=== PATIENT | male | born 1945 | race Caucasian/White ===

== ENCOUNTER 2024-07-20 20:02 | Inpatient (IN) | payer OTHER, MEDICARE, BC ==
[~2024-07-20] VITALS: Ht 172.7 cm; Wt 67.2 kg
[2024-07-20] MEDS ORDERED: iohexol 350MG/ML 100ml bottle IV ONE (20:14)
--- NOTE | 2024-07-20 20:22 | Physician Documentation ---
History of Present Illness ~ Stated Complaint: STROKE SYMPTOMS Time Seen by MD: 20:16 OK to notify your PCP?: Yes Source: patient, family (friends), RN/, RN notes reviewed, old records (none) Mode of Arrival: POV, Dropped Off Exam Limitations: no limitations, other (altered mental status) HPI 78 year old male, who is an [employer] with no known medical history, brought to the ED by his friends due to concerns of altered mental status, difficulty ambulating, and multiple falls today. Patient's friends have not seen him for approximately one week, and at that time he was not as talkative as normal and was leaning heavily on a truck to support himself. Today patient did not show up to their weekly dinner, so they called him but he did not answer the phone. They decided to go to his house at 1730 today, where they could see his legs w hile he lied in bed. When they knocked his legs "flopped over the bed" and they assumed patient was standing up to get the door, however after a few minutes he did not arrive so they entered the house. Patient was found lying on the floor in his room, having just fallen. Patient reported to his friends that he has had difficulty walking recently and has fallen approximately 12 times today, at one point hitting his head on the toilet. Friends report that patient normally walks approximately 20-30 yards while holding onto nearby objects to stabilize himself. He also appears to have some left arm weakness today and is looking to the right. He is also not as talkative as normal. Per friends, [facility] with [facility]. They are unaware of any medical diagnosis he has and patient traditionally does not go to "Western" doctors and takes multiple vitamins/herbal supplements. Medication Reconciliation Allergies: Coded Allergies: No Known Allergies (Unverified , 07/20/24) Past Medical History Past Medical History: No Pertinent History Past Surgical History: no surgical history Smoking Status: Never smoker Alcohol Use: Rarely Drug Use: marijuana Lives with: Alone Lives In: Home Review of Systems All Other Systems at this time: Reviewed and Negative ROS As stated above in the HPI, otherwise all systems are reviewed and negative. Physical Exam Vital Signs: RN Vital Signs have been reviewed: Yes Pulse Oximetry Reflects: adequate oxygenation General Appearance General: The patient is well developed, well nourished, nontoxic appearing and is in no acute distress. Skin: [place], warm and dry with no rashes. HEENT: Head was normocephalic and atraumatic. Chest: Clear to auscultation bilaterally without wheezes, rales or rhonchi. No accessory muscle use. No dullness to percussion. Heart: Rate regular and rhythmic. S1, S2. No murmurs. Palpation of the chest wall was normal. No rubs or thrills. Abdomen: Soft, nontender and nondistended. Positive bowel sounds. No guarding or rebound. Extremities: See below. No cyanosis, clubbing or edema. Pulses were equal and symmetric. Neurologic: A & O x4. Left pronator drift. No sensation of left upper and lower extremities. Left visual field neglect. No facial speech. Normal speech. Psychologic: Normal mood and affect. No agitation. Progress Progress Note 2044: Case discussed with teleneurologist, who will evaluate the patient shortly. 2144: beginning transfer process to facility with Neurointerventionalist. 2150: Case discussed with [facility] Neurointerventionalist. Reports patient does not need admission at their facility. Recommends giving aspirin but not Plavix. Admit here and repeat CTA in 3 months. 2199: Case discussed with Dr. Flanagan, internal medicine resident, who agrees to evaluate the patient for admission. Results/Orders Reviewed/noted all lab results: Yes Results/Orders Medications Received in ER Medications (Trade) Dose Ordered Sig/Chasity Route PRN Reason Start Time Stop Time Status Last Admin Dose Admin (aspirin 325mg tablet) 1 tab ONCE ONCE PO 07/20/24 22:15 07/20/24 22:24 DC 07/20/24 22:33 1 TAB Vital Signs 07/20/24 07/20/24 07/20/24 07/20/24 20:08 20:33 21:03 21:06 Pulse 94 91 87 95 Resp 15 15 19 17 B/P (MAP) 179/107 165/112 202/110 (140) Pulse Ox 98 97 98 97 O2 Flow Rate 0 07/20/24 07/20/24 21:06 21:37 Pulse 88 Resp 19 15 B/P (MAP) 179/120 (139) Pulse Ox 96 O2 Flow Rate 0 Laboratory Tests Test 07/20/24 20:10 07/20/24 20:32 White Blood Count 13.4 H Red Blood Count 5.38 Hemoglobin 15.9 Hematocrit 47.0 Mean Corpuscular Volume 87.4 Mean Corpuscular Hemoglobin 29.6 Mean Corpuscular Hemoglobin Concent 33.9 Red Cell Distribution Width 14.5 Platelet Count 232 Mean Platelet Volume 9.4 Neutrophils (%) (Auto) 69.6 Lymphocytes (%) (Auto) 16.5 L Monocytes (%) (Auto) 13.4 H Eosinophils (%) (Auto) 0.2 Basophils (%) (Auto) 0.3 Neutrophils # (Auto) 9.3 H Lymphocytes # (Auto) 2.2 Monocytes # (Auto) 1.8 H Eosinophils # (Auto) 0.0 Basophils # (Auto) 0.0 CBC Comment Erythrocyte Sedimentation Rate 12 Prothrombin Time 10.4 INR International Normalized Ratio 1.0 Activated Partial Thromboplast Time 27 Coagulation Comments Sodium Level 136 Potassium Level 4.3 Chloride Level 101 Carbon Dioxide Level 27.4 Anion Gap 8 Blood Urea Nitrogen 15 Creatinine 1.21 H Estimated GFR/1.73 m2 58 BUN/Creatinine Ratio 12.4 Glucose Level 122 H Calcium Level 9.3 Magnesium Level 2.0 Troponin I High Sensitivity 43 C-Reactive Protein 9.04 H Pro-B-Type Natriuretic Peptide 1277 H Albumin 3.7 Chemistry Comments Glucometer 130 H EKG/XRAY/CT/US/VASC/MRI CT #1: Interpreted By: radiologist CT: head With Contrast?: No Impression Clinical History stroke left sided Comparison None Technique: All CT scans at this medical facility are performed using dose modulation techniques as appropriate to a performed exam including the following: Automated exposure control was utilized; adjustment of the mA and/or kV according to patient size; and use of iterative reconstruction technique. All CT studies are reported to the Dose Index Registry of the [employer]. Without Contrast Radiation Dose: CTDI (mGy): 61.74; DLP (mGy-cm): 1071.98 ELI LÓPEZ, [id number] FINDINGS: The visualized portion of the orbits, scalp, and calvarium are unremarkable. No extraaxial fluid collection is noted. No acute infarct, hemorrhage, mass, or fluid collection is noted. Bilateral basal ganglia lacunar infarct is seen, chronic on the left and likely subacute on the right. Generalized atrophy is seen. There is periventricular white matter hypodensity compatible with small vessel ischemic changes. No hydrocephalus or midline shift is identified. The visualized portions of the paranasal sinuses and mastoid air cells are clear. IMPRESSION: Bilateral basal ganglia lacunar infarct is seen, chronic on the left and likely subacute on the right. MRI may be helpful for further evaluation. Atrophy with small vessel ischemic changes. Otherwise no acute intracranial finding This report was electronically signed by Victor Hugo Steanrs MD on 07/20/2024 8:39:12 PM. Reviewed by me CT #2: Interpreted By: radiologist CT: head (/neck) With Contrast?: Yes Impression INDICATION: normal ct head with CVA COMPARISON: None TECHNIQUE: CTA head without and with intravenous contrast. CTA neck with intravenous contrast. 3D image postprocessing was performed on a dedicated workstation and images were used for interpretation and reporting. Radiation Dose Information: CT Dose: CTDI volume is mGy. Dose-length product is mGy*cm FINDINGS: Common carotids are unremarkable. Patient has a dominant right vertebral artery. There are minimal soft plaque and calcified plaque in the carotid bulbs internal carotids and intracranial carotids demonstrate minimal patchy calcifications. The middle cerebral arteries, anterior cerebral arteries posterior cerebral arteries and basilar artery unremarkable. Patient has a dominant right vertebral artery. Area of most stenosis is the left bulb with There is Possible 30% stenosis. No evidence for aneurysm or extravasation of contrast or arterial venous malformation. IMPRESSION: 1. No significant stenoses or abnormalities All CT scans at this medical facility are performed using dose modulation techniques as appropriate to a performed exam including the following: Automated exposure control was utilized; adjustment of the MA and/or KV according to patient size; and use of iterative reconstruction technique. Reviewed by me Departure Time of Disposition: 22:00 Disposition: 09 ADMITTED INPATIENT Admitted to Inpatient Unit: yes, to hospitalist Impression: Primary Impression: Stroke Qualified Codes: I63.9 - Cerebral infarction, unspecified Condition: Guarded Referrals: NO PRIMARY CARE PROVIDER (PCP) Critical Care Note Total Time (mins): 35 Critical Care Note Critical Care Time: 35 minutes Treatments/Evaluations: Close monitoring and treatment of unstable vital signs, cardiorespiratory, and neurologic status, while maintaining tight balance of fluid, respiratory, and cardiac interventions. This time includes discussing the case with the patient and the patient's family. This time does not include all procedures stated elsewhere in this record. This time also includes reviewing old records, labs and radiological studies. This time includes examining and re- examining the patient. Additionally, this time also includes arranging care with admitting and consulting physicians. Signature Scribe Signature: Scribed for Dennis Limon MD by Gerard Milian . 07/20/24 20:23 Attestation: The note accurately reflects work and decisions made by me.Dennis Limon MD 20:22 DENNIS LIMON MD Jul 20, 2024 20:22 GERARD CARTWRIGHT Jul 20, 2024 20:34
[2024-07-20 20:32] LABS: APTT 27 SECONDS (22-32); BASOPHILS % (AUTO) 0.3 % (0-1); EOSINOPHILS % (AUTO) 0.2 % (0-6); HEMOGLOBIN 15.9 g/dl (14.0-17.9); LYMPHOCYTES # (AUTO) 2.2 X10'3 (1.1-4.8); LYMPHOCYTES % (AUTO) 16.5 % (21-51); MEAN CORPUSCULAR HEMOGLOBIN 29.6 PG (27.0-31.0); MEAN CORPUSCULAR HGB CONC 33.9 g/dL (33.0-36.5); MEAN CORPUSCULAR VOLUME 87.4 FL (78-98); MEAN PLATELET VOLUME 9.4 FL (7.4-10.4); MONOCYTES # (AUTO) 1.8 X10'3 (0-0.9); MONOCYTES % (AUTO) 13.4 % (2-12); NEUTROPHILS # (AUTO) 9.3 X10'3 (1.8-7.7); NEUTROPHILS % (AUTO) 69.6 % (42-75); PLATELET COUNT 232 X10'3 (140-440); PROTHROMBIN TIME 10.4 SECONDS (9.0-12.0); RED BLOOD COUNT 5.38 X10'6 (4.70-6.10); RED CELL DISTRIBUTION WIDTH 14.5 % (11.5-14.5); WHITE BLOOD COUNT 13.4 X10'3 (4.5-11.0)
[2024-07-20 20:40] LABS: ALBUMIN 3.7 G/DL (3.4-5.0); ANION GAP 8 (8-16); BLOOD UREA NITROGEN 15 MG/DL (7-18); BUN/CREATININE RATIO 12.4 (10.0-20.0); C-REACTIVE PROTEIN 9.04 MG/DL (0.0-0.5); CALCIUM 9.3 MG/DL (8.5-10.1); CHLORIDE 101 MMOL/L (99-107); CREATININE 1.21 MG/DL (0.60-1.10); GLUCOSE 122 MG/DL (70-104); POTASSIUM 4.3 MMOL/L (3.5-5.1); PRO BRAIN NATRIURETIC PEPTIDE 1277 PG/ML (0-450); SODIUM 136 MMOL/L (135-145); TOTAL CARBON DIOXIDE 27.4 MMOL/L (24-32); eGFR 58 ML/MIN
--- NOTE | 2024-07-20 20:42 | RADIOLOGY REPORT ---
Clinical History stroke left sided Comparison None Technique: All CT scans at this medical facility are performed using dose modulation techniques as appropriate t o a performed exam including the following: Automated exposure control was utilized; adjustment of th e mA and/or kV according to patient size; and use of iterative reconstruction technique. All CT studies are reported to the Dose Index Registry of the [employer]. Without Contrast Radiation Dose: CTDI (mGy): 61.74; DLP (mGy-cm): 1071.98 ELI LÓPEZ, [id number] FINDINGS: The visualized portion of the orbits, scalp, and calvarium are unremarkable. No extraaxial fluid collection is noted. No acute infarct, hemorrhage, mass, or fluid collection is noted. Bilateral basal ganglia lacunar infarct is seen, chronic on the left and likely subacute on the right . Generalized atrophy is seen. There is periventricular white matter hypodensity compatible with small vessel ischemic changes. No hydrocephalus or midline shift is identified. The visualized portions of the paranasal sinuses and mastoid air cells are clear. IMPRESSION: Bilateral basal ganglia lacunar infarct is seen, chronic on the left and likely subacute on the right . MRI may be helpful for further evaluation. Atrophy with small vessel ischemic changes. Otherwise no acute intracranial finding This report was electronically signed by Victor Hugo Stearns MD on 07/20/2024 8:39:12 PM.
--- NOTE | 2024-07-20 21:14 | [facility] CONSULT REPORT ---
[facility] Procedure Note [facility] Procedure Note Consult [facility] Note # Demographics Consult Type: Acute Stroke Level 1 (0-4.5 hrs) Patient Location: Emergency Room First Name: ELI Last Name: MARIBEL Date of : 1945 Age: 78 Gender: Male Facility: [facility] Time of Initial Page (): 07/20/2024 20:36 Time of Return Call (): 07/20/2024 20:37 # HPI History: 78yom who p/w strange speech x 2 days ago and then today had multiple falls, was not able to get up. Pt is not aware of his deficits. Last Known Normal: - I have collected independent history specific to time last normal or last known well. We have collaborated with the provider and at this time, we have the most current timeline with the information that is available. 2 days ago # Scores Time of exam and NIHSS (): 07/20/2024 20:44 Level of Consciousness 1a: [0] = Alert; keenly responsive LOC Questions 1b: [0] = Answers both questions correctly LOC Commands 1c: [0] = Performs both tasks correctly Best Gaze 2: [0] = Normal Visual 3: [2] = Complete hemianopia Facial Palsy 4: [0] = Normal symmetrical movements Motor Arm Left 5a: [1] = Drift Motor Arm Right 5b: [0] = No drift Motor Leg Left 6a: [1] = Drift Motor Leg Right 6b: [0] = No drift Limb Ataxia 7: [2] = Present in two limbs Sensory 8: [2] = Severe to total sensory loss Best Language 9: [0] = No aphasia Dysarthria 10: [1] = Bzhv-kl-kvohjdlc dysarthria Extinction and Inattention 11: [0] = No abnormality NIHSS Total: 9 # Data Time Head CT personally read by me (): 07/20/2024 20:[address]: - preliminarily reviewed by me, please refer to radiology read for official reading chronic bilateral infarcts CTA Head: L vert irregularity, concerning for dissection # Assessment Impression: - Ischemic Stroke (Acute) # Plan Thrombolytic/Intervention: NOT IV Thrombolysis or IA Intervention candidate Thrombolytic Exclusion: > 4.5 hours Intraarterial Exclusion: - no large vessel occlusion (LVO) Blood Pressure Management: Use labetolol 10-20mg IV PRN or nicardipine gtt to maintain BP parameters Target Blood Pressure: - SBP < 220 - DBP < 120 Imaging: (urgency: STAT): - CT Angiogram Head and CT Angiogram Neck AND call back with results if abnormal Imaging: (urgency: routine): - MRI Brain without contrast - MR Angiogram Head without contrast - MR Angiogram Neck with contrast Diagnostic Test: - echo with bubble study Telemetry for a fib monitoring Therapy/Evaluation: - PT/OT evaluation - speech/swallow consultation - NPO until swallow evaluation Medication: atorvastatin 80mg daily, goal LDL <70 ASA 325 now, start ASA 81mg daily Other: - If patient has any neurological deterioration please call me back immediately Additional Recommendations: - Hydrate with NS - Permissive HTN for next 24-48 hours, then gradual control by no more than 15% daily monitoring for neurological stability - Transfer to [facility] with BRENDA/neurology availability for consult - Avoid dehydration and relative hypotension - Risk factor modification, including smoking cessation and alcohol moderation if appropriate - Monitor glucose and correct as needed - If cryptogenic non-lacunar stroke on MRI, obtain outpatient cardiac monitoring for a fib - Call back for neurological deterioration Disposition: admit # Logistics Attestation of consult completion: The patient is located at: [facility]. Facility staff participated in the visit. I performed this telemedicine visit from my offsite office utilizing interactive 2 way audio and visual telecommunication technology. Total time spent in telemedicine encounter: I spent 27 minutes reviewing clinical data and/or imaging, obtaining history, examining the patient, communicating with the onsite care team, and in preparation of this report. # Demographics First Name: ELI Last Name: MARIBEL Facility: [facility] Neuro Consult Order placed for: Yes JOEL ZHANG MD Jul 20, 2024 21:14
--- NOTE | 2024-07-20 21:26 | RADIOLOGY REPORT ---
INDICATION: normal ct head with CVA COMPARISON: None TECHNIQUE: CTA head without and with intravenous contrast. CTA neck with intravenous contrast. 3D image postprocessing was performed on a dedicated workstation and images were used for interpretation and reporting. Radiation Dose Information: CT Dose: CTDI volume is mGy. Dose-length product is mGy*cm FINDINGS: Common carotids are unremarkable. Patient has a dominant right vertebral artery. There are minimal soft plaque and calcified plaque in the carotid bulbs internal carotids and intracr anial carotids demonstrate minimal patchy calcifications. The middle cerebral arteries, anterior cere bral arteries posterior cerebral arteries and basilar artery unremarkable. Patient has a dominant rig ht vertebral artery. Area of most stenosis is the left bulb with There is Possible 30% stenosis. No e vidence for aneurysm or extravasation of contrast or arterial venous malformation. IMPRESSION: 1. No significant stenoses or abnormalities All CT scans at this medical facility are performed using dose modulation techniques as appropriate t o a performed exam including the following: Automated exposure control was utilized; adjustment of th e MA and/or KV according to patient size; and use of iterative reconstruction technique.
[2024-07-20] MEDS ORDERED: magnesium sulf-water 4G/100mL 100 ML IV PRN (22:15)
[2024-07-20] MEDS ORDERED: ondansetron/PF 4mg/2ml inj IV PRN (22:15)
[2024-07-20] MEDS ORDERED: potassium Cl 40MEQ/1/2NS 520ml 520 ML IV PRN (22:15)
[2024-07-20] MEDS ORDERED: mag hydrox/Alum hydrox/simeth 30ml oral suspension PO PRN (22:15)
[2024-07-20] MEDS ORDERED: morphine 2 MG/ML inj. syringe IV PRN ×2 (22:15)
[2024-07-20] MEDS ORDERED: potassium Cl 20 mEq SR tablet PO PRN ×2 (22:15)
[2024-07-20] MEDS ORDERED: magnesium hydroxide 30ml (MOM) UD suspension PO PRN (22:15)
[2024-07-20] MEDS ORDERED: magnesium Cl slow-release 64mg tablet PO PRN (22:15)
[2024-07-20] MEDS ORDERED: magnesium sulf-water 2g/50mL 50 ML IV PRN (22:15)
[2024-07-20] MEDS: aspirin 325mg tablet PO ONE (22:33)
--- NOTE | 2024-07-20 22:58 | RADIOLOGY REPORT ---
Clinical History Stroke Alert Comparison None Technique: frontal chest x-ray Without Contrast ELI LÓPEZ, [id number] Findings: Heart - normal lungs - no consolidation. bones - no acute fracture. Other- elevated right hemidiaphragm Impression: 1. No acute cardiopulmonary disease This report was electronically signed by Michael Chavez MD on 07/20/2024 10:54:36 PM.
[2024-07-21] VITALS (9 sets, daily range): BP systolic 136–188; BP diastolic 93–116; PULSE 69–95; RESP 14–20; TEMP 97.6–98.4; O2SAT 95–97
--- NOTE | 2024-07-21 01:20 | HISTORY AND PHYSICAL-Residence ---
History & Physical Providers to CC Resident Creating Document: ILNO TREVORTORSTENSHYANN CHERY CC: LUIS BRANDT MD ~ History of Present Illness Primary Medical Doctor: [facility] [place] Reason for Admit\Complaint: Mechanical fall History of Present Illness Patient is a 78-year-old male with history of stroke, hypertension and hyperlipidemia who came to the ED after mechanical fall. Patient reports that when he was in the bathroom earlier today he lost strength in his knees and fell in the bathroom, after which he was not able to get up, he does report that he hit his head, however, denies losing consciousness, slurred speech, changes in vision/hearing or focal weakness. He also denies any preceding symptoms including chest pain, palpitation, lightheadedness, dizziness. Allergies: Coded Allergies: No Known Allergies (Unverified , 07/20/24) Past Medical History Past Medical History History of stroke 4 years ago Hypertension Hyperlipidemia Past Surgical History Surgical History Comment Back surgery due to herniated disc Tonsillectomy Family History Family History: FH: alcoholism FATHER FH: breast cancer MOTHER FH: stroke FATHER Past Social History Smoking: Non-Smoker Alcohol Use: Rarely Drug Use: Marijuana Lives with: Alone Lives In: Home ROS ROS All systems were reviewed and found negative except for pertinent positives mentioned in HPI Exam Vitals: Vital Signs Date Time Temp Pulse Resp B/P (MAP) Pulse Ox O2 Delivery O2 Flow Rate FiO2 07/21/24 00:13 75 07/21/24 00:02 98.4 16 188/116 (140) 96 Room Air 07/20/24 21:37 0 General: General: awake, alert oriented to place, time, and person, however does not make direct eye contact HEENT: No pallor present, no icterus, moist mucous membranes Neck: No masses and tenderness Resp: Unlabored. Lungs clear to auscultation bilaterally. Heart: Regular Rate and rhythm, normal S1 and S2 without murmur, rub or gallop Abdomen: Soft and non tender no organomegaly, no guarding and rigidity, bowel sounds present Neuro: Significant drift of left arm and leg. Knee reflex present bilaterally. Cranial nerves intact Extremities: No cyanosis,clubbing or edema Skin: Warm and Dry. No lesions Diagnostic Data Last Recorded Lab Results: 07/20/24200907/20/242009 Diagnostic Data: Laboratory Tests Test 07/20/24 20:10 Prothrombin Time 10.4 SECONDS (9.0-12.0) INR International Normalized Ratio 1.0 INR Activated Partial Thromboplast Time 27 SECONDS (22-32) Coagulation Comments Advance Care Planning Advanced Care plannin - 30 Minutes Additional Plan Patient is a 78-year-old male with history of stroke, hypertension and hyperlipidemia who came to the ED after mechanical fall. Admitted for management of possible stroke. Mechanical fall Possible stroke, NIHSS 4 Hypertension Hyperlipidemia Patient with a mechanical fall and focal left-sided weakness CT head shows bilateral basal ganglia lacunar infarct is seen, chronic on the left and likely subacute on the right CTA shows There are minimal soft plaque and calcified plaque in the carotid bulbs internal carotids and intracranial carotids demonstrate minimal patchy calcifications. The middle cerebral arteries, anterior cerebral arteries posterior cerebral arteries and basilar artery unremarkable. Patient has a dominant right vertebral artery. Area of most stenosis is the left bulb with There is Possible 30% stenosis. No evidence for aneurysm or extravasation of contrast or arterial venous malformation. Patient was evaluated by tele Neurology who recommended: - no thrombolysis - Use labetolol 10-20mg IV PRN or nicardipine gtt to maintain BP parameters -Target Blood Pressure: - SBP < 220 - DBP < 120 Imaging: - MRI Brain without contrast - MR Angiogram Head without contrast - MR Angiogram Neck with contrast - aspirin 325 mg once, then 81 mg daily - atorvastatin 80 mg daily - PT/OT - NPO until swallow eval - echo with bubble study In view of concerns of vertebral artery dissection expressed by neurologist, radiologist and IR was consulted by ED physician. They reported no concerns for dissection Will obtain further imaging studies as above Code Status: DNR Nutrition: NPO until swallow eval than heart healthy PT: Ordered Prognosis: Guarded Disposition: Admit to ortho/neuro with tele monitoring. Continue medical management Torsten Flanagan MD Internal Medicine Resident PGY-1 Date of Service: July 21, 2024 Billing Provider: LUIS BRANDT MD Common Visit Codes: 63165-VTHYOPG INP/OBS CARE (HIGH) Assessment/Plan Assessment Evaluated the patient with the help of residents. Discussed the case with him. Reviewed notes by the resident. I also reviewed the patient's records. Agree with his assessments and plans. No additional points at this time. TORSTEN YOUNG July 21, 2024 01:20 LUIS BRANDT MD July 21, 2024 05:31
[2024-07-21] MEDS ORDERED: NO HOME MEDS (01:49)
--- NOTE | 2024-07-21 05:12 | ELECTROCARDIOGRAPH REPORT ---
[facility] Test Date: 2024-07-20 Test Time: 20:34:39 Pat Name: ELI LÓPEZ Department: EMERGENCY ROOM Room: ORTHO [facility] A Gender: M Director Pharmaceutical: : 1945 Requested By: VERNA VIDALES Order Number: [id number] Reading MD: Dr. Verna Vidales Measurements Intervals [place] Rate: 92 P: 71 SD: 238 QRS: -52 QRSD: 100 T: 83 QT: 358 QTc: 443 Interpretive Statements Sinus rhythm Atrial premature complex Prolonged SD interval Consider left atrial enlargement LAD, consider left anterior fascicular block Abnormal R-wave progression, early transition ST elevation, consider inferior injury Baseline wander in lead(s) V1 Electronically Signed On 07-21-2024 20:40:[address] Verna Vidales Please click the below link to view image of tracing.
[2024-07-21 05:48] LABS: BASOPHILS # (AUTO) 0.1 X10'3 (0-0.2); BASOPHILS % (AUTO) 0.5 % (0-1); EOSINOPHILS # (AUTO) 0.1 X10'3 (0-0.9); EOSINOPHILS % (AUTO) 0.6 % (0-6); HEMATOCRIT 45.9 % (42.0-52.0); HEMOGLOBIN 15.3 g/dl (14.0-17.9); LYMPHOCYTES # (AUTO) 2.4 X10'3 (1.1-4.8); LYMPHOCYTES % (AUTO) 20.4 % (21-51); MEAN CORPUSCULAR HEMOGLOBIN 29.2 PG (27.0-31.0); MEAN CORPUSCULAR HGB CONC 33.3 g/dL (33.0-36.5); MEAN CORPUSCULAR VOLUME 87.5 FL (78-98); MEAN PLATELET VOLUME 9.1 FL (7.4-10.4); MONOCYTES # (AUTO) 1.6 X10'3 (0-0.9); MONOCYTES % (AUTO) 13.5 % (2-12); NEUTROPHILS # (AUTO) 7.6 X10'3 (1.8-7.7); PLATELET COUNT 200 X10'3 (140-440); RED BLOOD COUNT 5.25 X10'6 (4.70-6.10); RED CELL DISTRIBUTION WIDTH 13.9 % (11.5-14.5); WHITE BLOOD COUNT 11.6 X10'3 (4.5-11.0)
[2024-07-21 05:52] LABS: URINE AMPHETAMINE SCREEN NEGATIVE (Neg); URINE BARBITUATE SCREEN NEGATIVE (Neg); URINE BENZODIAZEPINES SCREEN NEGATIVE (Neg); URINE CANNABINOID SCREEN POSITIVE (Neg); URINE COCAINE SCREEN NEGATIVE (Neg); URINE METHADONE SCREEN NEGATIVE (Neg); URINE OPIATE SCREEN NEGATIVE (Neg); URINE PHENCYCLIDINE SCREEN NEGATIVE (Neg)
[2024-07-21 06:03] LABS: ALANINE AMINOTRANSFERASE 19 U/L (12-78); ALBUMIN 3.4 G/DL (3.4-5.0); ALKALINE PHOSPHATASE 92 IU/L (46-116); ANION GAP 11 (8-16); ASPARTATE AMINO TRANSFERASE 33 U/L (10-37); BILIRUBIN,TOTAL 1.4 MG/DL (0.1-1.0); BLOOD UREA NITROGEN 14 MG/DL (7-18); BUN/CREATININE RATIO 13.5 (10.0-20.0); CALCIUM 9.2 MG/DL (8.5-10.1); CHLORIDE 105 MMOL/L (99-107); CHOL/HDL RATIO 3.3 (0.00-4.99); CHOLESTEROL 221 MG/DL (0-200); CREATININE 1.04 MG/DL (0.60-1.10); GLUCOSE 110 MG/DL (70-104); HDL CHOLESTEROL 68 MG/DL (35-60); LDL CHOLESTEROL 137 MG/DL (50-100); POTASSIUM 3.8 MMOL/L (3.5-5.1); SODIUM 140 MMOL/L (135-145); TOTAL CARBON DIOXIDE 24.5 MMOL/L (24-32); TOTAL PROTEIN 6.9 G/DL (6.4-8.2); TRIGLYCERIDES 70 MG/DL (20-135); eCRCL 57 ML/MIN; eGFR 69 ML/MIN
[2024-07-21] MEDS: aspirin 81mg tab.chew PO SCH (07:23)
[2024-07-21] MEDS: docusate sod 100mg capsule PO SCH (07:23)
[2024-07-21] MEDS: atorvastatin 20mg tablet PO SCH (07:24)
[2024-07-21] MEDS: K and/or MAG REPLACEMENT MC SCH (07:31)
[2024-07-21] MEDS: PERFLUTREN PROTEIN-A MICROSPHR (Optison) 0.22 MG/ML 3ML VIAL IV ONE (08:00)
[2024-07-21 08:31] LABS: HEMOGLOBIN A1C 5.8 % (4.5-6.2)
[2024-07-21 08:37] LABS: THYROID STIMULATING HORMONE 3.31 ulU/ml (0.34-4.50)
--- NOTE | 2024-07-21 14:37 | RADIOLOGY REPORT ---
DI ORBITS COMPLETE, INDICATION: r/o foreign object for an MRI TECHNICAL DATA: Frontal, only view is obtained of the skull. COMPARISON: CT head 07/20/2024 FINDINGS / impression: No radiopaque foreign body is visualized single on the provided single frontal view. No fracture or focal bone abnormality is demonstrated. The paranasal sinuses appear well aerated with no filling defect. The mastoid air cells are clear.
--- NOTE | 2024-07-21 18:00 | RADIOLOGY REPORT ---
PROCEDURE: MR MRA NECK INDICATION: Stroke Exam Date: 07/21/2024 05:14 PM COMPARISON: None TECHNIQUE: MRA neck without intravenous contrast. 3D image postprocessing was performed on a dedicated workstation and images were used for interpretat ion and reporting. FINDINGS: MRA neck: The visualized thoracic aortic arch and proximal great vessels are unremarkable. There is no evidenc e of hemodynamically significant stenosis involving the bilateral common and internal carotid arterie s. Right vertebral artery is patent. No flow in the left vertebral artery. IMPRESSION: 1. No flow in the left vertebral artery, likely occluded. no hemodynamically significant stenosis in the carotid arteries of the neck. HS:Y
--- NOTE | 2024-07-21 18:26 | CARDIOLOGY REPORT ---
APPROVED REPORT EXAM: Comprehensive 2D, Doppler, and color-flow Echocardiogram with saline. Patient Location: 4010A Blood Pressure: 188/116 mmHg Heart Rate: 97 bpm Rhythm: Sinus Indications CVA/TIA ProBNP: 1277 NO OPERATION SUPERVISOR NO Previous ECHO 2D Dimensions LA Diam2.5 cm IVSd 1.0 (0.7-1.1cm) LVDd 4.5 cm PWd 0.9 (0.7-1.1cm) IVSs 1.2 (0.8-1.2cm) LVDs 3.1 (2.5-4.0cm) PWs 1.4 (0.8-1.2cm) LVOT Diameter 2.16 (1.8-2.4cm) LVEF(%) 59.6 (>50%) IVC 11.69 mm FS (%) 31.5 % SV 54.3 ml CO 5.4 L/min M-Mode Dimensions Left Atrium(MM) 4.66 (2.5-4.0cm) Aortic Root 3.32 (2.2-3.7cm) Aortic Valve AoV Peak Billy. 140.2 cm/s AoV VTI 19.7 cm AO Peak GR. 7.9 mmHg AO Mean GR. 5 mmHg LVOT VTI 13.99 cm LVOT Peak Billy. 86.7 cm/s SHRUTI(VTI)/BSA 2.61 cm2/m2 SHRUTI (VTI) 2.61 cm2 Mitral Valve MV E Velocity 40.6 cm/s MV Peak Gr. 1 mmHg MV DECEL TIME 84 ms MV A Velocity 96.8 cm/s MV PHT 44 ms E/A Ratio 0.4 MVA (PHT) 5.00 cm2 MV VMax42.6 cm/s TDI Lateral E' P. V7.27 cm/s E/Lateral E' 5.6 Tricuspid Valve TR P. Velocity 122 cm/s RAP ESTIMATE 10 mmHg TR Peak Gr. 6 mmHg RVSP 16 mmHg LEFT VENTRICLE Normal LV size and wall thickness. Overall systolic function is normal. LVEF is 60-65%. RIGHT VENTRICLE RV is normal size and function. ATRIA The left atrium size is normal. Saline study was performed with 2 IV injections of 10 ccs of agitated normal saline at rest, with cough, and with valsalva. Negative saline study for right to left flow. AORTIC VALVE Trileaflet AV appears mildly sclerotic without stenosis. No insufficiency. MITRAL VALVE Mitral valve leaflets are mildly thickened with mild annular calcification. Trace regurgitation. TRICUSPID VALVE Tricuspid valve is grossly normal in structure with trace regurgitation. PULMONIC VALVE The pulmonary valve is normal in structure with physiologic insufficiency. GREAT VESSELS The aortic root is normal in size. The IVC is normal in size and collapses >50% with inspiration. PERICARDIUM Normal pericardium. No effusion. Anterior epicardial fat pad is present. Other Information Study Quality: Fair with poor parasternal short axis views. Conclusion Normal LV size and wall thickness. Overall systolic function is normal. LVEF is 60-65%. RV is normal size and function. The left atrium size is normal. Saline study was performed with 2 IV injections of 10 ccs of agitated normal saline at rest, with cou gh, and with valsalva. Negative saline study for right to left flow. Trileaflet AV appears mildly sclerotic without stenosis. No insufficiency. Mitral valve leaflets are mildly thickened with mild annular calcification. Trace regurgitation. Tricuspid valve is grossly normal in structure with trace regurgitation. Normal pericardium. No effusion. Anterior epicardial fat pad is present.
[2024-07-21] MEDS: enoxaparin 40mg/0.4ml syringe SQ SCH (19:09)
--- NOTE | 2024-07-21 19:54 | PROGRESS NOTE- Residence ---
Progress Note - Resident Providers to CC Resident Creating Document: MADELEINE SOFIA RES ~ Antibiotic Timeout Antibiotic Ordered?: No Subjective Patient was seen at the bedside while he was having the 2D echocardiogram this morning. Patient stated that he has a visual defect with the tunnel vision, all of his left sided upper extremities weakness could be new as per his family members at the bedside today. He stated that he was fell off from the toilet seat and cause left eye abrasion because of his knee weakness. As per family members, his baseline is socializing and going outside with fully ambulatory status. He has no history of AFib diagnosis before. Objective Vital Signs Date Time Temp Pulse Resp B/P (MAP) Pulse Ox O2 Delivery O2 Flow Rate FiO2 07/21/24 18:30 95 07/21/24 13:07 16 96 Room Air 07/21/24 10:00 97.6 182/99 (126) 07/21/24 00:00 0.0 Result Diagram: 07/21/24 0530 07/21/24 0530 Vitals were stable at the moment with temp 98 F, FL 82/minute, RR 14/minute, BP 140 6/90 mm Hg, pulse oximetry 97% on room air. General: Well alert, well oriented, not confused, not agitated, not in acute distress, well cooperated during the physical. Visual field defect with a tunnel vision, no direct eye contact. HEENT: Conjunctive are pink, sclerae clear, no icterus, pupil is equal in both sides, reactive to light, no ear discharge, no pharyngeal erythema or an edema, mouth and lips are moist. Neck: Supple, no JVD, no lymphadenopathy and thyromegaly. Lungs:Equal air entry on both lungs, no additional sounds Heart: S1-S2 regular sinus rhythm and, regular rate, no gallops, no rubs, no murmurs Abdomen: No visible peristalsis, Bowel sounds present on auscultation, soft, nontender, no guarding, no rigidity Extremities: no pitting edema bilaterally, capillary refill intact, able to wiggle toes both sides, peripheral pulsations are intact on both sides CULTURE ROOM WORKER: Left arm pronator drift positive, DTR 2+ bilaterally, obvious deformities and weakness on the left upper and, No focal neurological deficits in other extremities, no motor and sensory weakness in all extremities except for the left upper and, could move all 4 extremities Musculoskeletal: No joint swelling, deformities, inflammations, and no scoliosis and back tenderness Skin: No active skin lesions and rashes Coagulation Studies Laboratory Tests Test 07/20/24 20:10 Prothrombin Time 10.4 SECONDS (9.0-12.0) INR International Normalized Ratio 1.0 INR Activated Partial Thromboplast Time 27 SECONDS (22-32) Coagulation Comments Assessment Assessment Patient is a 78-year-old male with history of stroke, hypertension and hyperlipidemia who came to the ED after mechanical fall. Admitted for management of possible stroke. Plan Plan # GLF # CVA, NIHSS 4 # HTN Emergency # Hx of HTN and HLD -last night neuro consultation suspected for the possible vertebral artery dissection but radiology did not correlate on the imaging, proceed with MRA/MRI head which was preceded by the orbital eye x-ray to detect for the any foreign metal materials from previous occupation exposure, F/up W/pending result - Echo on 07/21/2024 showed LVEF 60-65%, LA normal, saline steady negative, trace MR, TR, normal pericardium no effusion. - Plan : Neuro monitoring, and consult tele neuro again for the any changes : was given one time dose of ASA 325 mg but not Clopidogrel 300 mg in ER as per [facility] consultation, f/ by PO ASA 81 mg daily : Permissive HTN should be allowed upto 220/120 mmHg in the non thrombolysis pt with over goal targeted therapy window of 4.5 hours, to prevent any superimposed ischemic stroke, and control the BP if more than 48 hours of admission ( Targeted SBP <180 and DBP >140) : Prevent the DVT in the CVA pt hunter 48 hrs of event/ admission who are ath the higher risk of thrombosis during the admission, SC Lovenox daily and SCD s until fully ambulatory : LDL should be below 70 for 2' prevention of stroke in the future with the low dosage of the high to moderate intensity anti Lipid PO Atorvastatin 80 mg : Bowel care with the stool softner and prevent the bowel strain to reduce the ICP to prevent the hemorrhagic stroke from straining : PT eval plays a role for post stroke residual motor deficits and return back to normal with the rapid recovery. :IV Fluid replacement was held with 1277 : Continue swallow test ST eval and OT PT 07/20/24:Patient with a mechanical fall and focal left-sided weakness CT head shows bilateral basal ganglia lacunar infarct is seen, chronic on the left and likely subacute on the right CTA shows There are minimal soft plaque and calcified plaque in the carotid bulbs internal carotids and intracranial carotids demonstrate minimal patchy calcifications. The middle cerebral arteries, anterior cerebral arteries posterior cerebral arteries and basilar artery unremarkable. Patient has a dominant right vertebral artery. Area of most stenosis is the left bulb with There is Possible 30% stenosis. No evidence for aneurysm or extravasation of contrast or arterial venous malformation. Patient was evaluated by tele Neurology who recommended: - no thrombolysis - Use labetolol 10-20mg IV PRN or nicardipine gtt to maintain BP parameters -Target Blood Pressure: - SBP < 220 - DBP < 120 Imaging: - MRI Brain without contrast - MR Angiogram Head without contrast - MR Angiogram Neck with contrast - aspirin 325 mg once, then 81 mg daily - atorvastatin 80 mg daily - PT/OT - NPO until swallow eval - echo with bubble study In view of concerns of vertebral artery dissection expressed by neurologist, radiologist and IR was consulted by ED physician. They reported no concerns for dissection Will obtain further imaging studies as above CODE STATUS: DNR DVT prophylaxis: Sc Lovenox Analgesia/sedation: IV morphine as needed Lines/tubes: Peripheral IV GI prophylaxis: Famotidine Nutrition: Swallow test followed by heart healthy Prognosis: Guarded Disposition: Continue medical management, neuro monitoring, consult with neurology again for the any new neurologic deficits, permissive hypertension and blood pressure control, PT eval and DC plan. Resident MD attestation: Patient was seen and examined with attending MD, Dr. SY SOFIA MD Internal Medicine Resident, PGY2 [facility] Date of Service: July 21, 2024 Billing Provider: ARJUN DAN MD Common Visit Codes: [id number] INP/OBS CARE(HIGH) MADELEINE SOFIA, MORGAN July 21, 2024 19:54 ARJUN DAN MD July 21, 2024 21:07
[2024-07-21] MEDS ORDERED: heparin, porcine 5000 units/ml vial SQ SCH (20:00)
--- NOTE | 2024-07-21 20:49 | RADIOLOGY REPORT ---
EXAM: MR MRI HEAD; DATE: 07/21/2024 04:54 PM HISTORY: Stroke COMPARISON: None TECHNIQUE: This study was performed on a 1.5 Viji closed magnet. 3D [id number] of the head and neck study in the axial plane with multiple angiographic reconstructions of the [place]. No IV contrast was administered. FINDINGS: CTA neck: The bilateral common carotid and internal carotid arteries are patent with no occlusion or high-grade stenosis noted. The mid left ICA is tortuous and retropharyngeal. The right vertebral nette ry is patent with a beaded appearance. The left vertebral artery is occluded. CTA head: The intracranial internal carotid arteries are patent bilaterally. There is occlusion of t he proximal M1 segment of the right MCA measuring 5 mm in the length. Fenestrated A1 segment of the r ight SHANA with no evidence of occlusion. The left MCA is patent. The intracranial left vertebral nette ry is occluded. The basilar artery is perfused by the right vertebral artery. The left POLYMER ENGINEER shows colten ust flow. Sluggish flow noted in the right POLYMER ENGINEER. IMPRESSION: 1. 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 The basilar artery is perfused by the right vertebral artery. 2. Sluggish flow in the right POLYMER ENGINEER. 3. Redemonstration of Short-segment occlusion of the proximal M1 segment of the right MCA measuring 5 mm in length. Findings discussed with Amber at 07/21/2024 08:32 PM, and acknowledged receipt and understanding of t he findings. ..
--- NOTE | 2024-07-21 20:50 | RADIOLOGY REPORT ---
EXAM: MR MRA HEAD; DATE: 07/21/2024 04:54 PM HISTORY: Stroke COMPARISON: None TECHNIQUE: This study was performed on a 1.5 [place]iji closed magnet. 3D [id number] of the head and neck study in the axial plane with multiple angiographic reconstructions of the [place]. No IV contrast was administered. FINDINGS: CTA neck: The bilateral common carotid and internal carotid arteries are patent with no occlusion or high-grade stenosis noted. The mid left ICA is tortuous and retropharyngeal. The right vertebral nette ry is patent with a beaded appearance. The left vertebral artery is occluded. CTA head: The intracranial internal carotid arteries are patent bilaterally. There is occlusion of t he proximal M1 segment of the right MCA measuring 5 mm in the length. Fenestrated A1 segment of the r ight SHANA with no evidence of occlusion. The left MCA is patent. The intracranial left vertebral nette ry is occluded. The basilar artery is perfused by the right vertebral artery. The left COMPRESSOR OPERATOR shows colten ust flow. Sluggish flow noted in the right COMPRESSOR OPERATOR. IMPRESSION: 1. 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 The b asilar artery is perfused by the right vertebral artery. 2. Sluggish flow in the right COMPRESSOR OPERATOR. 3. Redemonstration of Short-segment occlusion of the proximal M1 segment of the right MCA measuring 5 mm in length. Findings discussed with at 07/21/2024 08:32 PM, and acknowledged receipt and understanding of the fi ndings. ..
[2024-07-22] VITALS (7 sets, daily range): BP systolic 136–167; BP diastolic 82–108; PULSE 64–103; RESP 16–18; TEMP 97.4–99.9; O2SAT 94–96
[2024-07-22 05:02] LABS: BASOPHILS % (AUTO) 0.3 % (0-1); EOSINOPHILS # (AUTO) 0.1 X10'3 (0-0.9); EOSINOPHILS % (AUTO) 0.6 % (0-6); HEMATOCRIT 44.8 % (42.0-52.0); LYMPHOCYTES # (AUTO) 2.1 X10'3 (1.1-4.8); LYMPHOCYTES % (AUTO) 15.7 % (21-51); MEAN CORPUSCULAR HEMOGLOBIN 29.3 PG (27.0-31.0); MEAN CORPUSCULAR HGB CONC 33.5 g/dL (33.0-36.5); MEAN CORPUSCULAR VOLUME 87.3 FL (78-98); MEAN PLATELET VOLUME 9.4 FL (7.4-10.4); MONOCYTES # (AUTO) 1.8 X10'3 (0-0.9); MONOCYTES % (AUTO) 13.6 % (2-12); NEUTROPHILS # (AUTO) 9.1 X10'3 (1.8-7.7); NEUTROPHILS % (AUTO) 69.8 % (42-75); PLATELET COUNT 204 X10'3 (140-440); RED BLOOD COUNT 5.13 X10'6 (4.70-6.10); RED CELL DISTRIBUTION WIDTH 13.9 % (11.5-14.5); WHITE BLOOD COUNT 13.1 X10'3 (4.5-11.0)
[2024-07-22 05:15] LABS: ALANINE AMINOTRANSFERASE 24 U/L (12-78); ALBUMIN 3.1 G/DL (3.4-5.0); ALBUMIN/GLOBULIN RATIO 0.9 (1.1-1.5); ALKALINE PHOSPHATASE 84 IU/L (46-116); ANION GAP 9 (8-16); ASPARTATE AMINO TRANSFERASE 40 U/L (10-37); BILIRUBIN,TOTAL 1.1 MG/DL (0.1-1.0); BLOOD UREA NITROGEN 23 MG/DL (7-18); CHLORIDE 106 MMOL/L (99-107); CREATININE 1.15 MG/DL (0.60-1.10); GLUCOSE 122 MG/DL (70-104); MAGNESIUM 2.1 MG/DL (1.5-2.4); POTASSIUM 3.9 MMOL/L (3.5-5.1); SODIUM 140 MMOL/L (135-145); TOTAL CARBON DIOXIDE 25.1 MMOL/L (24-32); TOTAL PROTEIN 6.7 G/DL (6.4-8.2); eCRCL 51 ML/MIN; eGFR 62 ML/MIN
[2024-07-22] MEDS: furosemide 20 MG/2 ML vial IV SCH (12:06)
--- NOTE | 2024-07-22 19:46 | PROGRESS NOTE- Residence ---
Progress Note - Resident Providers to CC Resident Creating Document: MADELEINE SOFIA RES ~ Antibiotic Timeout Antibiotic Ordered?: Yes Subjective Patient show significant improvement and no new neurologic deficits were reported. MRI brain showed mid RCA distribution of moderate acute infarction demanding for the 2nd opinion from neurology consultation. Objective Vital Signs Date Time Temp Pulse Resp B/P (MAP) Pulse Ox O2 Delivery O2 Flow Rate FiO2 07/22/24 18:30 107 07/22/24 10:00 97.4 16 136/85 (102) 95 Room Air 07/22/24 08:00 0.0 Result Diagram: 07/22/2444107/22/24441 Vitals were stable at the moment with temp 98 F, MA 82/minute, RR 14/minute, BP 140 6/90 mm Hg, pulse oximetry 97% on room air. General: Well alert, well oriented, not confused, not agitated, not in acute distress, well cooperated during the physical. Visual field defect with a tunnel vision, no direct eye contact. HEENT: Conjunctive are pink, sclerae clear, no icterus, pupil is equal in both sides, reactive to light, no ear discharge, no pharyngeal erythema or an edema, mouth and lips are moist. Neck: Supple, no JVD, no lymphadenopathy and thyromegaly. Lungs:Equal air entry on both lungs, no additional sounds Heart: S1-S2 regular sinus rhythm and, regular rate, no gallops, no rubs, no murmurs Abdomen: No visible peristalsis, Bowel sounds present on auscultation, soft, nontender, no guarding, no rigidity Extremities: no pitting edema bilaterally, capillary refill intact, able to wiggle toes both sides, peripheral pulsations are intact on both sides TITLE CLOSER: Left arm pronator drift positive, DTR 2+ bilaterally, obvious deformities and weakness on the left upper and, No focal neurological deficits in other extremities, no motor and sensory weakness in all extremities except for the left upper and, could move all 4 extremities Musculoskeletal: No joint swelling, deformities, inflammations, and no scoliosis and back tenderness Skin: No active skin lesions and rashes Coagulation Studies Laboratory Tests Test 07/20/24 20:10 Prothrombin Time 10.4 SECONDS (9.0-12.0) INR International Normalized Ratio 1.0 INR Activated Partial Thromboplast Time 27 SECONDS (22-32) Coagulation Comments Assessment Assessment Patient is a 78-year-old male with history of stroke, hypertension and hyperlipidemia who came to the ED after mechanical fall. Admitted for management of possible stroke. Plan Plan # GLF # CVA, NIHSS 4 # HTN Emergency # Hx of HTN and HLD 07/22/24: MRI head showed Moderate acute right MCA territorial infarct with involvement of the left basal ganglia. No intracranial hemorrhage. -requested tele neuro consultation for 2nd opinion -BP is controlled well around 136/85 mm Hg, continue medications 07/21/2024-last night neuro consultation suspected for the possible vertebral artery dissection but radiology did not correlate on the imaging, proceed with MRA/MRI head which was preceded by the orbital eye x-ray to detect for the any foreign metal materials from previous occupation exposure, F/up W/pending result - Echo on 07/21/2024 showed LVEF 60-65%, LA normal, saline steady negative, trace MR, TR, normal pericardium no effusion. - Plan : Neuro monitoring, and consult tele neuro again for the any changes : was given one time dose of ASA 325 mg but not Clopidogrel 300 mg in ER as per [facility] consultation, f/ by PO ASA 81 mg daily : Permissive HTN should be allowed upto 220/120 mmHg in the non thrombolysis pt with over goal targeted therapy window of 4.5 hours, to prevent any superimposed ischemic stroke, and control the BP if more than 48 hours of admission ( Targeted SBP <180 and DBP >140) : Prevent the DVT in the CVA pt hunter 48 hrs of event/ admission who are ath the higher risk of thrombosis during the admission, SC Lovenox daily and SCD s until fully ambulatory : LDL should be below 70 for 2' prevention of stroke in the future with the low dosage of the high to moderate intensity anti Lipid PO Atorvastatin 80 mg : Bowel care with the stool softner and prevent the bowel strain to reduce the ICP to prevent the hemorrhagic stroke from straining : PT eval plays a role for post stroke residual motor deficits and return back to normal with the rapid recovery. :IV Fluid replacement was held with 1277 : Continue swallow test ST eval and OT PT 07/20/24:Patient with a mechanical fall and focal left-sided weakness CT head shows bilateral basal ganglia lacunar infarct is seen, chronic on the left and likely subacute on the right CTA shows There are minimal soft plaque and calcified plaque in the carotid bulbs internal carotids and intracranial carotids demonstrate minimal patchy calcifications. The middle cerebral arteries, anterior cerebral arteries posterior cerebral arteries and basilar artery unremarkable. Patient has a dominant right vertebral artery. Area of most stenosis is the left bulb with There is Possible 30% stenosis. No evidence for aneurysm or extravasation of contrast or arterial venous malformation. Patient was evaluated by tele Neurology who recommended: - no thrombolysis - Use labetolol 10-20mg IV PRN or nicardipine gtt to maintain BP parameters -Target Blood Pressure: - SBP < 220 - DBP < 120 Imaging: - MRI Brain without contrast - MR Angiogram Head without contrast - MR Angiogram Neck with contrast - aspirin 325 mg once, then 81 mg daily - atorvastatin 80 mg daily - PT/OT - NPO until swallow eval - echo with bubble study In view of concerns of vertebral artery dissection expressed by neurologist, radiologist and IR was consulted by ED physician. They reported no concerns for dissection Will obtain further imaging studies as above CODE STATUS: DNR DVT prophylaxis: Sc Lovenox Analgesia/sedation: IV morphine as needed Lines/tubes: Peripheral IV GI prophylaxis: Famotidine Nutrition: Swallow test followed by heart healthy Prognosis: Guarded Disposition: Continue medical management, neuro monitoring, consult with neurology again for the any new neurologic deficits, permissive hypertension and blood pressure control, PT eval and DC plan for tomorrow discharge to [facility]. Resident MD attestation: Patient was seen and examined with attending MD, Dr. SY SOFIA MD Internal Medicine Resident, PGY2 [facility] Date of Service: July 22, 2024 Billing Provider: ARJUN DAN MD Common Visit Codes: [id number] INP/OBS CARE(HIGH) MADELEINE SOFIA RES July 22, 2024 19:46 ARJUN DAN MD July 22, 2024 21:43
[2024-07-22] MEDS: acetaminophen 325mg tablet PO PRN (20:19)
--- NOTE | 2024-07-22 20:27 | [facility] CONSULT REPORT ---
[facility] Procedure Note [facility] Procedure Note Consult [facility] Note # Demographics Consult Type: Follow-Up Phone Call Patient Location: Inpatient First Name: Jorge Last Name: Joe Date of : 1945 Age: 78 Gender: Male Facility: [facility] Time of Initial Page (): 07/22/2024 16:39 Time of Return Call ( Time): 07/22/2024 16:39 # HPI History: 78 y/o M admitted 07/20 with speech difficulty and falls. # Data CTA Head: - no large vessel occlusion severe stenosis Rt M1 CTA Neck: Lt vertebral artery occlusion MRI: - acute ischemia Rt frontal-temporal and basal ganglia Other Imaging: echo EF 60% # Assessment Impression: - Ischemic Stroke (Subacute) Rt frontal temporal region due to symptomatic high grade Rt M1 stenosis # Plan Target Blood Pressure: SBP < 140 Therapy/Evaluation: - PT/OT evaluation Medication: - start statin with goal of LDL < 70 DAPT with aspirin 81mg + plavix 75mg for 90 days, then monotherapy with aspirin DVT Prophylaxis: - enoxaprin (Lovenox) 40 mg subcutaneously daily Other: - If patient has any neurological deterioration please call me back immediately - telemetry monitoring # Logistics Attestation of consult completion: The patient is located at: [facility]. I performed this phone consultation from my offsite office Total time spent in telemedicine encounter: 20 minutes # Demographics First Name: Jorge Last Name: Joe Facility: [facility] Electronically signed at 07/22/2024 20:27 (Jeddo ) by Winifred Griffin DO Neuro Consult Order placed for: Yes GOLDIE GRIFFIN DO July 22, 2024 20:27
[2024-07-23 05:00] VITALS: BP 161/93; PULSE 94; RESP 18; TEMP 99.1; O2SAT 96
[2024-07-23 07:23] LABS: BASOPHILS % (AUTO) 0.1 % (0-1); EOSINOPHILS % (AUTO) 0 % (0-6); HEMATOCRIT 45.2 % (42.0-52.0); HEMOGLOBIN 15.3 g/dl (14.0-17.9); LYMPHOCYTES % (AUTO) 12.2 % (21-51); MEAN CORPUSCULAR HEMOGLOBIN 29.3 PG (27.0-31.0); MEAN CORPUSCULAR HGB CONC 33.8 g/dL (33.0-36.5); MEAN CORPUSCULAR VOLUME 86.7 FL (78-98); MEAN PLATELET VOLUME 10.2 FL (7.4-10.4); MONOCYTES # (AUTO) 2.8 X10'3 (0-0.9); MONOCYTES % (AUTO) 16.7 % (2-12); NEUTROPHILS # (AUTO) 11.8 X10'3 (1.8-7.7); PLATELET COUNT 208 X10'3 (140-440); RED BLOOD COUNT 5.22 X10'6 (4.70-6.10); RED CELL DISTRIBUTION WIDTH 13.9 % (11.5-14.5); WHITE BLOOD COUNT 16.6 X10'3 (4.5-11.0)
[2024-07-23] MEDS: clopidogrel 75mg tablet PO SCH (07:48)
[2024-07-23 07:51] LABS: ALANINE AMINOTRANSFERASE 26 U/L (12-78); ALBUMIN 2.9 G/DL (3.4-5.0); ALBUMIN/GLOBULIN RATIO 0.7 (1.1-1.5); ALKALINE PHOSPHATASE 75 IU/L (46-116); ANION GAP 11 (8-16); ASPARTATE AMINO TRANSFERASE 37 U/L (10-37); BILIRUBIN,TOTAL 1.7 MG/DL (0.1-1.0); BLOOD UREA NITROGEN 23 MG/DL (7-18); BUN/CREATININE RATIO 19.5 (10.0-20.0); CALCIUM 9.2 MG/DL (8.5-10.1); CHLORIDE 103 MMOL/L (99-107); CREATININE 1.18 MG/DL (0.60-1.10); GLUCOSE 99 MG/DL (70-104); MAGNESIUM 2.1 MG/DL (1.5-2.4); POTASSIUM 3.7 MMOL/L (3.5-5.1); SODIUM 138 MMOL/L (135-145); TOTAL CARBON DIOXIDE 24.3 MMOL/L (24-32); TOTAL PROTEIN 6.9 G/DL (6.4-8.2); eCRCL 50 ML/MIN; eGFR 60 ML/MIN
[2024-07-23 12:28] VITALS: BP 130/90; PULSE 80; RESP 16; TEMP 97.6; O2SAT 98
[2024-07-23 15:41] LABS: BILIRUBIN,URINE NEGATIVE (Neg); CLARITY,URINE CLEAR (Clear); GLUCOSE, URINE NEGATIVE (Neg); KETONES,URINE NEGATIVE (Neg); LEUKOCYTE ESTERASE ,URINE NEGATIVE (Neg); NITRITES, URINE NEGATIVE (Neg); OCCULT BLOOD,URINE SMALL (Neg); PROTEIN,URINE >=300 mg/dl (Neg)
[2024-07-23 15:55] LABS: COLOR,URINE DARK YELLOW (Yellow); UA COLLECTION TYPE CLN CATCH MIDSTREAM
[2024-07-23 15:56] LABS: BACTERIA,URINE FEW /HPF (Neg); MUCUS STRANDS NONE SEEN /LPF (Neg); RBC,URINE 0-2 /HPF (0-2); SQUAMOUS EPITHELIAL CELL,UR NONE SEEN /LPF (FEW); WBC,URINE 0-4 /HPF (0-4)
--- NOTE | 2024-07-23 15:59 | DISCHARGE SUMMARY-Residence ---
Discharge Summary Providers to CC Resident Creating Document: BISMARKMADELEINE, RES ~ Discharge Summary Admission Diagnosis: Stroke Hospital Course DATE OF ADMISSION: 07/20/2024 DATE OF DISCHARGE: 07/23/2024 Discharge Diagnosis\Comment: # GLF # CVA, NIHSS 4-subacute right frontal-temporal and basal ganglia ischemic stroke with severe stenosis right M1 # left vertebral artery occlusion # HTN Emergency - controlled # Hx of HTN and HLD Operations\Procedures: None Consultants: Tele neuro consultation Complications: None Condition on DC: Stable Discharge Summary: A 78-year-old male with a past medical history of CVA with left-sided hemiplegia, hypertension and hyperlipidemia who came to the ED after falling off from the chair found to have hypertensive emergency and cerebrovascular accident. Hospital course: He was admitted to the neurological floor for the further neurological evaluation and management with a concern of possible stroke resulted into ground level fall, and additional hypertensive emergency. Patient underwent head CT W/0 IV contrast show bilateral basal ganglia lacunar infarction, chronic on the left and subacute on the right, atrophy with small-vessel ischemic changes, no acute intracranial finding and MRI was recommended. He has done head/neck CTA showed no significant stenosis abnormalities. His 2D echocardiogram on 07/21/2024 showed LVEF 60-65%, RV normal, LA normal, negative saline bubble study, trace MR, TR and normal pericardium and no effusion. Tele neurology consultation was requested for his subacute basal ganglia lacunar infarction with a left-sided weakness. Neurology stated that NIHSS score 4, therapeutic window for thrombolysis with HC-over 4.5 hours on arrival, used labetalol 10-20 mg IV prn along with IV nicardipine drip which was stopped one blood pressure dropped more than 25% of original presented high blood pressure within 8 hours. NPO was achieved until proper swallow test, ST eval and PT OT was requested. Loading dose of aspirin 300 mg was given on the admission day followed by regu lar ASA 81 mg daily and other post stroke care. 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 Sluggish flow in the right [employer] and Short-segment occlusion of the proximal M1 segment of the right MCA measuring 5 mm in length. Neck MRA showed No flow in the left vertebral artery, likely occluded. no hemodynamically significant stenosis in the carotid arteries of the neck. His Head MRI showed Moderate acute right MCA territorial infarct with involvement of the left basal ganglia. No intracranial hemorrhage. Moderate global cortical atrophy and chronic microvascular ischemic changes. Hence, 2nd opinion of Neurology consultation was requested again. Neurology recommended for double antiplatelet therapy for 90 days followed by the aspirin independently, LDL goal of less than 70s to prevent secondary stroke in the future with proper blood pressure control with a targeted goal of less than 140/80 mm Hg after 48 hours of stroke. Preventive DVT by giving sc Lovenox and IV fluid replacement was not achieved because of his BNP 1 277 although no signs and symptoms of active CHF exacerbation. GI prophylaxis was achieved with famotidine. All of the questions and concerns were addressed with the best knowledge of our team before he was discharged. Today, all of his labs were reviewed WNL except for the WBC up trending to 16.6 with BUN 23, creatinine 1.18, total cholesterol 221, triglycerides 70, LDL 137, HDL 68 and TSH 3.31. All other vitals were stable at the moment with temp 97.6 F, MI 80/minute, RR 16/minute, BP 130/90 mm Hg, pulse oximetry 98% on room air. On examination, General: Well alert, well oriented, not confused, not agitated, not in acute distress, well cooperated during the physical. Visual field defect with a tunnel vision, no direct eye contact. HEENT: Conjunctive are pink, sclerae clear, no icterus, pupil is equal in both sides, reactive to light, no ear discharge, no pharyngeal erythema or an edema, mouth and lips are moist. Neck: Supple, no JVD, no lymphadenopathy and thyromegaly. 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 aspirin 81 mg daily P.o. Plavix 75 mg daily P.o. Lasix 20 mg daily P.o. docusate 100 mg b.i.d. P.o. ondansetron 4 mg q.6 hours p.r.n. for nausea and vomiting P.o. atorvastatin 80 mg daily Discharge instructions: -return to ER for the new neurological deficits and weakness, altered mental status etc and other imaging saturations. -continue follow up with the PCP in a 1-2 weeks after discharge for further management -LDL goal of< 70, strict blood pressure control< 140/80 mm Hg, strict cardiovas cular risk factor modification lifestyle -compliance with the medications including double antiplatelet therapy for 90 days, followed by aspirin 81 mg daily independently -physical therapy, ST, OT and post acute stroke care. -please follow up with the urine analysis lab results and culture sensitivity for the possible UTI with nonspecific elevation of WBC count and treat accordingly. Resident MD attestation: Patient was seen and examined with attending MD, Dr. SY SOFIA MD Internal Medicine Resident, PGY2 [facility] *Problems/Diagnosis: (1) Stroke Status: Acute Total Time Spent on D/C: > 30 Minutes Date of Service: July 23, 2024 Billing Provider: ARJUN DAN MD Common Visit Codes: 24370-OOZ/OBS DISCH DAY >30min Problem Qualifiers (1) Stroke: CVA mechanism: unspecified Qualified Codes: I63.9 - Cerebral infarction, unspecified MADELEINE SOFIA RES July 23, 2024 15:50 ARJUN DAN MD July 24, 2024 07:44
[2024-07-23] MEDS ORDERED: furosemide 20 MG/2 ML vial IV SCH (20:00)
== END 2024-07-23 16:00 | DRG 65 ==
LOC: ER 20:04 → ED HOLD 22:20 → ORTHO 4S 23:54
PROVIDERS: ADMIT Internal Medicine Critical Care Medicine; ATTEND Internal Medicine
PROC: B3251ZZ Computerized Tomography (CT Scan) of Bilateral Common Carotid Arteries using Low Osmolar Contrast (ICD-10-PCS; principal; 2024-07-20)
PROC: B32G1ZZ Computerized Tomography (CT Scan) of Bilateral Vertebral Arteries using Low Osmolar Contrast (ICD-10-PCS; 2024-07-20)
PROC: B32R1ZZ Computerized Tomography (CT Scan) of Intracranial Arteries using Low Osmolar Contrast (ICD-10-PCS; 2024-07-20)
PROC: B3281ZZ Computerized Tomography (CT Scan) of Bilateral Internal Carotid Arteries using Low Osmolar Contrast (ICD-10-PCS; 2024-07-20)
DX: I63.511 Cerebral infarction due to unspecified occlusion or stenosis of right middle cerebral artery (principal); G81.92 Hemiplegia, unspecified affecting left dominant side; I16.1 Hypertensive emergency; I10 Essential (primary) hypertension; E78.5 Hyperlipidemia, unspecified; Z80.3 Family history of malignant neoplasm of breast; Z79.899 Other long term (current) drug therapy
CPT/HCPCS: 36415; 70200; 70450; 70496; 70498; 70544; 70551; 71045; 80048; 80053; 80061; 80305; 81001; 82948; 83036; 83735; 83880; 84443; 84484; 85025; 85610; 85651; 85730; 86140; 86885; 86900; 86901; 87081; 93005; 93306; 96372; 97110; 97116; 97161; 97530; 99291; A6212; A6590; G0378; J1650; J1938; Q9967